=== PATIENT | female | born 1995 | race Two or more races ===

== ENCOUNTER 2017-01-12 15:18 | Inpatient (IN) | payer MEDICAID ==
[~2017-01-12] VITALS: Ht 151.1 cm; Wt 76.4 kg
[2017-01-12 16:17] VITALS: BP 111/68
[2017-01-12] MEDS ORDERED: D5%-LACTATED RINGERS 1,000 ML IV SCH (16:33)
[2017-01-12] MEDS ORDERED: OXYTOCIN 30U/ 0.9% NaCL 500ML 500 ML IV PRN (16:33)
[2017-01-12] MEDS ORDERED: OXYTOCIN 30U/ 0.9% NaCL 500ML 500 ML IV ONE (16:33)
[2017-01-12] MEDS ORDERED: ONDANSETRON 2MG/ML, 2ML IVPush PRN (17:00)
[2017-01-12] MEDS ORDERED: CALCIUM CARBONATE 500 MG TAB.CHEW PO PRN (17:00)
[2017-01-12] MEDS ORDERED: SODIUM CITRATE/CITRIC ACID 30 ML UDC PO PRN (17:00)
[2017-01-12] MEDS ORDERED: FENTANYL PF 100 MCG/2ML IV PRN (17:00)
[2017-01-12] MEDS ORDERED: METOCLOPRAMIDE 5 MG/ML, 2ML IVPush PRN (17:00)
[2017-01-12] MEDS ORDERED: FENTANYL PF 100 MCG/2ML IVPush PRN (17:00)
[2017-01-12] MEDS ORDERED: OXYTOCIN 30U/ 0.9% NaCL 500ML 500 ML ONE (17:19)
[2017-01-12] MEDS ORDERED: NEWBORN KIT ONE (17:19)
[2017-01-12] MEDS: LACTATED RINGERS 1,000 ML IV SCH ×3 (17:27→20:09)
[2017-01-12 17:56] LABS: ANISOCYTOSIS 1+; MICROCYTOSIS 1+; POLYCHROMASIA 1+
[2017-01-12 17:57] LABS: LARGE PLATELETS 1+
[2017-01-12] MEDS ORDERED: AMPICILLIN 2 GM in SODIUM CHLORIDE 0.9% 100 ML IVPB STA (19:57)
[2017-01-12] MEDS ORDERED: FENTANYL/BUPIV./NS/PF 250 ML EPIDCONT ONE ×2 (20:02→20:04)
[2017-01-12] MEDS ORDERED: BUPIVACAINE 0.25% ONE (20:04)
[2017-01-12] MEDS ORDERED: LIDOCAINE/PF 1.5%-EPI 1:200K, 30ML ONE (20:04)
[2017-01-12] MEDS ORDERED: LIDOCAINE 1%, 20ML ONE (20:04)
[2017-01-12] MEDS ORDERED: LACTATED RINGERS 1,000 ML IV SCH (20:56)
[2017-01-12] MEDS ORDERED: FENTANYL/BUPIV./NS/PF 250 ML EPIDCONT SCH (20:56)
[2017-01-12] MEDS ORDERED: LACTATED RINGERS 1,000 ML IVBOLUS PRN (21:00)
[2017-01-13] MEDS: AMPICILLIN 1 GM in SODIUM CHLORIDE 0.9% 50 ML IVPB SCH ×2 (00:10→03:57)
[2017-01-13] MEDS ORDERED: ONDANSETRON 2MG/ML, 2ML IV PRN (02:00)
[2017-01-13] MEDS ORDERED: MISOPROSTOL 200 MCG TABLET PR PRN (02:00)
[2017-01-13] MEDS ORDERED: METHYLERGONOVINE 0.2 MG/ML IM PRN (02:00)
[2017-01-13] MEDS ORDERED: CALCIUM CARBONATE 500 MG TAB.CHEW PO PRN (02:00)
[2017-01-13] MEDS ORDERED: HYDROcodone/APAP 5/325 TABLET PO PRN ×2 (02:00)
[2017-01-13] MEDS: OXYTOCIN 30U/ 0.9% NaCL 500ML 500 ML IV SCH ×3 (02:13→21:50)
[2017-01-13 04:25] VITALS: BP 116/76
[2017-01-13 07:30] VITALS: BP 114/74
[2017-01-13] MEDS: PRENATAL VIT/IRON/FA 1 EACH TABLET PO SCH (08:23)
[2017-01-13] MEDS: DOCUSATE 100 MG CAPSULE PO PRN ×2 (08:23→19:05)
[2017-01-13] MEDS: IBUPROFEN 600 MG TABLET PO PRN ×2 (08:23→19:05)
[2017-01-13 11:50] VITALS: BP 112/71
[2017-01-13 17:00] VITALS: BP 115/74
[2017-01-13 20:30] VITALS: BP 107/70
[2017-01-14 00:40] VITALS: BP 127/73
[2017-01-14] MEDS: OXYTOCIN 30U/ 0.9% NaCL 500ML 500 ML IV SCH (03:55)
[2017-01-14 08:30] VITALS: BP 112/74
[2017-01-14] MEDS: DOCUSATE 100 MG CAPSULE PO PRN ×2 (08:42→21:21)
[2017-01-14] MEDS: PRENATAL VIT/IRON/FA 1 EACH TABLET PO SCH (08:42)
[2017-01-14] MEDS: IBUPROFEN 600 MG TABLET PO PRN ×2 (08:42→21:21)
[2017-01-14 21:00] VITALS: BP 112/73
[2017-01-15] MEDS: PRENATAL VIT/IRON/FA 1 EACH TABLET PO SCH (07:44)
[2017-01-15] MEDS: DOCUSATE 100 MG CAPSULE PO PRN (07:44)
[2017-01-15] MEDS: IBUPROFEN 600 MG TABLET PO PRN (07:51)
[2017-01-15 08:00] VITALS: BP 109/74
[2017-01-15] MEDS ORDERED: IBUP200T48 PO (11:05)
[2017-01-15] MEDS ORDERED: FERR300L PO (11:07)
[2017-01-15] MEDS ORDERED: DOCU-30 PO (11:08)
== END 2017-01-15 15:02 | disposition home or self-care (01) | DRG 775 ==
LOC: LDOP 15:18 → LDIP 16:39 → 2NW 01-13 04:12
PROVIDERS: ADMIT Student in an Organized Health Care Education/Training Program; ATTEND Student in an Organized Health Care Education/Training Program
PROC: 10E0XZZ Delivery of Products of Conception, External Approach (ICD-10-PCS; principal; 2017-01-13)
PROC: 3E0R3CZ (ICD-10-PCS; 2017-01-13)
PROC: 00HU33Z Insertion of Infusion Device into Spinal Canal, Percutaneous Approach (ICD-10-PCS; 2017-01-13)
DX: O42.12 Full-term premature rupture of membranes, onset of labor more than 24 hours following rupture (principal); O48.0 Post-term pregnancy; Z37.0 Single live birth; Z3A.40 40 weeks gestation of pregnancy; O99.03 Anemia complicating the puerperium; D64.9 Anemia, unspecified
CPT/HCPCS: 36415; 85025; 86850; 86900; 89060; J0290; J3490; J2590; J3010; J7120; Q0114

== ENCOUNTER 2018-03-13 21:19 | Outpatient (CLI) | payer MEDICAID ==
[~2018-03-13] VITALS: Ht 152.4 cm; Wt 68.6 kg
[~2018-03-13 21:19] MED LIST: DOCU-131 PO; FERR300L PO; IBUP200T49 PO
[2018-03-13 21:39] VITALS: BP 107/59
[2018-03-13] MEDS ORDERED: PREN1TAB60 PO (21:50)
[2018-03-13 22:04] LABS: MICROSCOPIC AUTO
[2018-03-13 22:56] LABS: AMPHETAMINE SCREEN, URINE Negative (Negative); BARBITURATE SCREEN, URINE Negative (Negative); BENZODIAZEPINE SCREEN, URINE Negative (Negative); CANNABINOID SCREEN, URINE Negative (Negative); COCAINE SCREEN, URINE Negative (Negative); METHADONE SCREEN, URINE Negative (Negative); OPIATE SCREEN, URINE Negative (Negative)
== END 2018-03-13 23:00 | disposition home or self-care (01) ==
LOC: LDOP 21:19
PROVIDERS: ATTEND Obstetrics & Gynecology
DX: O36.8130 Decreased fetal movements, third trimester, not applicable or unspecified (principal); Z3A.31 31 weeks gestation of pregnancy
CPT/HCPCS: 59025; 80307; 81001; 87086; 99211; G0463

== ENCOUNTER 2018-05-09 08:07 | Outpatient (CLI) | payer MEDICAID ==
[~2018-05-09] VITALS: Ht 152.4 cm; Wt 77.0 kg
[~2018-05-09 08:07] MED LIST changes: +PREN1TAB60 PO
[2018-05-09 08:26] VITALS: BP 112/57
== END 2018-05-09 09:33 | disposition home or self-care (01) ==
LOC: LDOP 08:07
PROVIDERS: ATTEND Obstetrics & Gynecology
DX: O36.8130 Decreased fetal movements, third trimester, not applicable or unspecified (principal); Z3A.39 39 weeks gestation of pregnancy
CPT/HCPCS: 59025; 89060; 99211; G0463; Q0114

== ENCOUNTER 2020-02-16 07:59 | Emergency (ER) | payer MEDICAID, OTHER ==
[~2020-02-16] VITALS: Ht 149.9 cm; Wt 78.2 kg
[2020-02-16 08:03] VITALS: BP 114/70
--- NOTE | 2020-02-16 09:10 | NUR ---
Patient/Caregiver given discharge instructions and they have confirmed that they understand the instructions. Patient ambulatory with steady gait.
== END 2020-02-16 09:30 | disposition home or self-care (01) ==
LOC: ED 08:50
DX: U07.1 COVID-19 (principal); B34.9 Viral infection, unspecified; R06.02 Shortness of breath; R05 Cough; M79.10 Myalgia, unspecified site
CPT/HCPCS: 36415; 71045; 87635; 99284

== ENCOUNTER 2021-02-21 06:53 | Emergency (ER) | payer MEDICAID ==
[~2021-02-21] VITALS: Ht 152.4 cm; Wt 79.5 kg
[2021-02-21 06:59] VITALS: BP 110/68
--- NOTE | 2021-02-21 08:30 | NUR ---
[email or web address]
--- NOTE | 2021-02-21 08:45 | NUR ---
PT TO ROOM FROM LOBBY
--- NOTE | 2021-02-21 09:12 | NUR ---
[id number]
--- NOTE | 2021-02-21 09:37 | NUR ---
[id number]
== END 2021-02-21 09:39 | disposition left against medical advice (07) ==
LOC: ED 09:33
DX: O26.893 Other specified pregnancy related conditions, third trimester (principal); R05 Cough; Z53.21 Procedure and treatment not carried out due to patient leaving prior to being seen by health care provider

== ENCOUNTER 2021-02-27 07:27 | Inpatient (IN) | payer MEDICAID ==
[~2021-02-27] VITALS: Ht 152.4 cm; Wt 75.0 kg
[2021-02-27] MEDS ORDERED: SODIUM CITRATE/CITRIC ACID 30 ML UDC PO PRN (08:00)
[2021-02-27] MEDS ORDERED: OXYTOCIN 30U/ 0.9% NaCL 500ML 500 ML IV ONE (08:00)
[2021-02-27] MEDS ORDERED: CALCIUM CARBONATE 500 MG TAB.CHEW PO PRN (08:00)
[2021-02-27] MEDS ORDERED: METOCLOPRAMIDE 5 MG/ML, 2ML IVPush PRN (08:00)
[2021-02-27] MEDS ORDERED: ONDANSETRON 2MG/ML, 2ML IVPush PRN (08:00)
[2021-02-27] MEDS ORDERED: TERBUTALINE 1 MG/ML, 1ML IVPush PRN (08:00)
[2021-02-27] MEDS: D5%-LACTATED RINGERS 1,000 ML IV SCH ×2 (08:00→16:00)
[2021-02-27] MEDS ORDERED: TERBUTALINE 1 MG/ML, 1ML SQ PRN (08:00)
[2021-02-27] MEDS ORDERED: FENTANYL PF 100 MCG/2ML IVPush PRN (08:00)
[2021-02-27] MEDS ORDERED: OXYTOCIN 30U/ 0.9% NaCL 500ML 500 ML IV PRN (08:00)
[2021-02-27] MEDS ORDERED: MISOPROSTOL 25 MCG TABLET VG PRN (08:00)
[2021-02-27] MEDS: LACTATED RINGERS 1,000 ML IV SCH ×2 (12:18→15:53)
[2021-02-27] MEDS ORDERED: OXYTOCIN 30U/ 0.9% NaCL 500ML 500 ML ONE (12:30)
[2021-02-27] MEDS ORDERED: NEWBORN KIT ONE (12:30)
[2021-02-27 12:42] VITALS: BP 111/63
[2021-02-27 12:56] LABS: BASOPHILS % (AUTO) 0 % (0-1); EOSINOPHILS % (AUTO) 1 % (1-7); LYMPHOCYTES % (AUTO) 24 % (22-44); MEAN CORPUSCULAR HEMOGLOBIN 28.5 pg (27.0-34.8); MEAN CORPUSCULAR HGB CONC 33.2 g/dL (32.4-35.8); MEAN PLATELET VOLUME 9.4 fL (7.4-10.4); MONOCYTES % (AUTO) 8 % (2-9); NEUTROPHILS % (AUTO) 66 % (42-75); PLATELET COUNT 169 x10^3/uL (130-400); RED BLOOD COUNT 3.78 x10^6/uL (3.82-5.3); RED CELL DISTRIBUTION WIDTH 15.9 % (9.6-15.2)
[2021-02-27] MEDS ORDERED: FENTANYL/BUPIV./NS/PF 250 ML EPIDCONT ONE (16:39)
[2021-02-27] MEDS ORDERED: MISOPROSTOL 200 MCG TABLET PR PRN (19:30)
[2021-02-27] MEDS ORDERED: METHYLERGONOVINE 0.2 MG/ML IM PRN (19:30)
[2021-02-27] MEDS ORDERED: ACETAMINOPHEN 325 MG TABLET PO PRN ×2 (19:30)
[2021-02-27] MEDS ORDERED: DOCUSATE 100 MG CAPSULE PO PRN (19:30)
[2021-02-27] MEDS ORDERED: ONDANSETRON 2MG/ML, 2ML IV PRN (19:30)
[2021-02-27] MEDS ORDERED: SIMETHICONE 80 MG CHEW TAB PO PRN (19:30)
[2021-02-27] MEDS: OXYTOCIN 30U/ 0.9% NaCL 500ML 500 ML IV SCH (19:30)
[2021-02-27] MEDS ORDERED: IBUPROFEN 600 MG TABLET PO PRN (19:30)
[2021-02-27 21:30] VITALS: BP 100/60
[2021-02-28] MEDS ORDERED: NEWBORN KIT ONE
[2021-02-28] MEDS: LACTATED RINGERS 1,000 ML IV SCH ×3 (00:11→16:00)
[2021-02-28] MEDS: D5%-LACTATED RINGERS 1,000 ML IV SCH ×3 (00:11→16:00)
[2021-02-28 00:32] VITALS: BP 101/68
[2021-02-28 04:01] VITALS: BP 104/70
[2021-02-28 04:23] LABS: BASOPHILS % (AUTO) 0 % (0-1); EOSINOPHILS % (AUTO) 1 % (1-7); LYMPHOCYTES % (AUTO) 21 % (22-44); MEAN CORPUSCULAR HEMOGLOBIN 28.1 pg (27.0-34.8); MEAN CORPUSCULAR HGB CONC 32.7 g/dL (32.4-35.8); MEAN PLATELET VOLUME 9.6 fL (7.4-10.4); MONOCYTES % (AUTO) 6 % (2-9); NEUTROPHILS % (AUTO) 72 % (42-75); PLATELET COUNT 155 x10^3/uL (130-400); RED BLOOD COUNT 3.73 x10^6/uL (3.82-5.3)
[2021-02-28] MEDS: OXYTOCIN 30U/ 0.9% NaCL 500ML 500 ML IV SCH ×2 (05:42→15:30)
[2021-02-28] MEDS ORDERED: PRENATAL VIT/IRON/FA 1 EACH TABLET PO SCH (09:00)
[2021-02-28 09:30] VITALS: BP 89/59
[2021-02-28 12:10] VITALS: BP 90/55
[2021-02-28] MEDS ORDERED: IBUP-1222 PO (13:27)
[2021-02-28 15:40] VITALS: BP 102/65
== END 2021-02-28 20:10 | disposition home or self-care (01) | DRG 807 ==
LOC: LDIP 07:27 → UNDODISIN 08:37 → LDIP 11:40 → 2NW 21:23
PROVIDERS: ADMIT Obstetrics & Gynecology; ATTEND Obstetrics & Gynecology
PROC: 10E0XZZ Delivery of Products of Conception, External Approach (ICD-10-PCS; principal; 2021-02-27)
PROC: 10907ZC Drainage of Amniotic Fluid, Therapeutic from Products of Conception, Via Natural or Artificial Opening (ICD-10-PCS; 2021-02-27)
PROC: 3E033VJ Introduction of Other Hormone into Peripheral Vein, Percutaneous Approach (ICD-10-PCS; 2021-02-27)
PROC: 3E0R3BZ Introduction of Anesthetic Agent into Spinal Canal, Percutaneous Approach (ICD-10-PCS; 2021-02-27)
PROC: 00HU33Z Insertion of Infusion Device into Spinal Canal, Percutaneous Approach (ICD-10-PCS; 2021-02-27)
DX: O69.81X0 Labor and delivery complicated by cord around neck, without compression, not applicable or unspecified (principal); Z37.0 Single live birth; Z20.822 Contact with and (suspected) exposure to COVID-19; Z3A.39 39 weeks gestation of pregnancy
CPT/HCPCS: 36415; 85025; 86592; 86850; 86900; 87635; G0378; J2590; J3010; J7120